=== PATIENT | female | born 1980 | race Caucasian/White ===

== ENCOUNTER 2021-11-22 12:39 | Outpatient (REF) | payer OTHER, SELFPAY ==
--- NOTE | ~2021-11-22 | MR_ITS ---
EXAMINATION: MR OF THE BRAIN WITHOUT CONTRAST CLINICAL INFORMATION: 41-year-old with self-reported short-term memory loss, slurred speech with difficulty finding words and headache with vomiting. Encephalopathy. COMPARISON: None TECHNIQUE: Multiplanar multisequence MR imaging of the brain was done without IV contrast. FINDINGS: BRAIN VOLUME: Within normal limits within the limitations of qualitative assessment. STRUCTURAL: No malformations. BRAIN AND MENINGES: DWI sequence demonstrates no restricted diffusion to suggest acute or subacute cerebral ischemia. The brain is normal in morphology and signal intensity. Gradient refocused imaging demonstrates no evidence for abnormal magnetic susceptibility signal loss to suggest hemorrhage, hemosiderin staining or abnormal mineral deposition. Crockett-white matter differentiation is well maintained. No extra-axial fluid collections, space-occupying process or mass effect are identified. VENTRICLES AND SUBARACHNOID SPACES: The ventricular system and subarachnoid spaces are within normal limits without hydrocephalus. ORBITAL STRUCTURES: The visualized orbital structures are grossly unremarkable within the limitations of the study. VASCULAR: Signal voids are noted in the visualized major intracranial vessels. OSSEOUS STRUCTURES, SINUSES/MASTOIDS, EXTRACRANIAL SOFT TISSUES: Unremarkable. MR/MR head/brain wo con IMPRESSION: Normal noncontrast MRI of the brain.
== END 2021-11-22 12:40 | disposition home or self-care (01) ==
LOC: HO.MRI 12:39
PROVIDERS: PCP Internal Medicine; Visit Provider Psychiatry & Neurology Neurology
DX: G93.40 Encephalopathy, unspecified (principal)
CPT/HCPCS: 70551